=== PATIENT | female | born 1965 | race African-American/Black ===

== ENCOUNTER 2018-06-05 20:09 | Emergency (ER) | payer OTHER ==
[~2018-06-05] VITALS: Ht 172.7 cm; Wt 102.1 kg
[2018-06-05] MEDS ORDERED: MOBIC15 MG PO (20:25)
[2018-06-05 20:55] VITALS: BP 164/88
== END 2018-06-05 20:55 | disposition home or self-care (01) ==
LOC: ER 20:09
DX: M25.511 Pain in right shoulder (principal); Z90.710 Acquired absence of both cervix and uterus

== ENCOUNTER 2020-04-11 14:23 | Inpatient (IN) | payer OTHER ==
[~2020-04-11] VITALS: Ht 152.4 cm; Wt 141.6 kg
--- NOTE | ~2020-04-11 | O ---
[facility] [place] [address] OPERATIVE REPORT Name: LISA ANTONIO Room #: 454-P ADM IN M.R.#: [id number] Admission: 04/11/20 Attend Phys: Agus Muir MD Discharge: Date of : 63 Report #: [id number] THIS REPORT FOR: cc: JANICE - No family physician/PCP JANICE - No family physician/PCP Roge Reece MD ~ CC: [facility] physician/PCP Agus Muir DATE OF SERVICE: 04/12/2020 PREOPERATIVE DIAGNOSIS: Left groin abscess POSTOPERATIVE DIAGNOSIS: Left groin abscess OPERATION: Incision and drainage of left groin abscess SURGEON: Roge Reece MD ANESTHESIA: General ESTIMATED BLOOD LOSS: Minimal SPECIMEN: Fluid for culture and sensitivity DESCRIPTION OF PROCEDURE: After informed consent was obtained, the patient was brought to the operating room and placed supine. SCDs were placed and working, preoperative antibiotics were administered, general anesthesia was induced. The patient was then placed with the left leg frog legged out. The left groin was prepped and draped in the usual sterile fashion. A 3 cm incision was made over the area of fluctuance. Abscess fluid was drained, it was cultured. I then extended the incision posteriorly approximately 5 cm to fully drain the abscess. The area was then copiously irrigated with normal saline. It was packed with sterile gauze. Sterile dressings were applied. COMPLICATIONS: None. DISPOSITION: The patient was taken to recovery in satisfactory condition. By: [id number] Roge Reece MD /kasia
--- NOTE | ~2020-04-11 | O ---
[facility] [place] [address] OPERATIVE REPORT Name: LISA ANTONIO Room #: 454-P ADM IN M.R.#: [id number] Admission: 04/11/20 Attend Phys: Agus Muir MD Discharge: Date of : 63 Report #: [id number] THIS REPORT FOR: cc: JANICE - No family physician/PCP JANICE - [place] family physician/PCP Roge Reece MD ~ CC: [facility] physician/PCP Agus Muir DATE OF SERVICE: 04/15/2020 PREOPERATIVE DIAGNOSIS: Left groin abscess. POSTOPERATIVE DIAGNOSIS: Left groin abscess. OPERATION: Incision and debridement of left groin abscess. SURGEON: Roge Reece MD ANESTHESIA: General. ESTIMATED BLOOD LOSS: Minimal. SPECIMEN: None. DESCRIPTION OF PROCEDURE: After informed consent was obtained, the patient was brought to the operating room and placed supine. SCDs were placed and working, preoperative antibiotics were administered, general anesthesia was induced. The patient was placed in the lithotomy position. The area was then prepped and draped in the usual sterile fashion. This was excisional debridement. Depth was down through the muscle. 100% of the wound was debrided. Post-debridement wound area was approximately 20 x 6 x 3 cm. I used cautery to debride away necrotic tissue posteriorly. I then irrigated the area copiously and packed it with Dakin's soaked gauze. Two Kerlix rolls were used to pack the entirety of the wound. Sterile dressings were then applied. COMPLICATIONS: None. DISPOSITION: The patient was taken to recovery in satisfactory condition. By: [id number] [id number] Roge Reece MD /nt
--- NOTE | ~2020-04-11 | HC ---
[facility] [place] [address] CONSULTATION Name: LISA ANTONIO Room #: 454-P ADM IN M.R.#: [id number] Admission: 04/11/20 Attend Phys: Agus Muir MD Discharge: Date of : 63 Report #: [id number] THIS REPORT FOR: cc: JANICE - No family physician/PCP FAM - No family physician/PCP Cierra Davis MD ~ REASON FOR CONSULTATION: Elevated creatinine. REASON FOR PRESENTATION: Groin pain and swelling. HISTORY OF PRESENT ILLNESS: This is a 55-year-old with past medical history of gallbladder stones, hysterectomy. She presented to the Emergency Room with left groin pain and swelling associated with purulent discharge. She was found to have significant leukocytosis with an elevated creatinine. Creatinine on arrival was 2.6 and had risen to 3.9 mandating Nephrology consultation. White blood cell count was 28,000. Her abscess was associated with fever and chills. She also reported to some nausea and vomiting. The patient was admitted for further evaluation of her abscess. ID consult was obtained. She had significant abscess that was drained with and wound packed. Antibiotics were initiated by the Infectious Disease. PAST MEDICAL HISTORY: 1. Hysterectomy. 2. Gallbladder stones. 3. Recent incision and drainage of the left groin. SOCIAL HISTORY: No drug or alcohol abuse. She lives at home with family. FAMILY HISTORY: Hypertension. ALLERGIES: None. MEDICATIONS: None as an outpatient. REVIEW OF SYSTEMS: GENERAL: Significant for fever and chills. CARDIOVASCULAR: Significant for shortness of breath. PULMONARY: No cough or hemoptysis. GASTROINTESTINAL: Significant for nausea and vomiting. GENITOURINARY: No frequency, no urgency. MUSCULOSKELETAL: As per the history of present illness. PHYSICAL EXAMINATION: GENERAL: She is alert, oriented. VITAL SIGNS: Temperature 36.9, blood pressure is 146/68, pulse rate is 102, [facility] [address] [place] [address] CONSULTATION Name: LISA ANTONIO Room #: 454-P [facility] IN [facility]#: [id number] Admission: 04/11/20 Attend Phys: Agus Muir MD Discharge: Date of : 63 Report #: [id number] respiratory rate is 18. HEAD AND NECK: No jugular venous distention. CHEST: No crackles. CARDIOVASCULAR: No rub. ABDOMEN: Soft. EXTREMITIES: Lower extremities, recent surgical scar. LABORATORY VALUES: White blood cell count 26.4, hemoglobin 9.3. Sodium is 135, potassium is 4, carbon dioxide is 20, BUN is 64, creatinine is 3.9. CT abdomen, lower extremity CT revealed a pocket of gas in the left groin with inflammatory changes within the medial upper left thigh. IMPRESSION AND PLAN: 1. Acute kidney injury. 2. Left thigh abscess. 3. Sepsis secondary to left lower extremity abscess. 4. Her acute kidney injury is well explained by her current septic condition. Appropriate laboratory investigation will be sent. 5. Continue current approach for her abscess including aggressive wound care, antibiotics. 6. Check a CPK. 7. Continue to monitor daily electrolytes, urine output, and renal function. 8. Adjust all medications to her current GFR, specifically if we were able to use nephrotoxic medications. 9. Continue IV fluid. 10. We will continue to follow during her hospital stay. By: [id number] Cierra Davis MD /nt
[~2020-04-11 14:23] MED LIST: MOBIC15 MG PO
[2020-04-11 14:26] VITALS: BP 147/74
[2020-04-11] MEDS ORDERED: NOHOMEMEDICATIONS (14:57)
[2020-04-11 15:29] LABS: HEMATOCRIT 33.8 % (37.0-47.0); HEMOGLOBIN 11.1 gm/dL (12.0-15.0); MCH 28.9 pg (26.0-34.0); MCV 87.6 fL (80.0-100.0); RBC 3.86 mil/uL (4.20-5.00); RDW 15.4 % (10.5-14.5)
[2020-04-11 15:39] LABS: CALCIUM 9.7 mg/dL (8.5-10.1); CREATININE 2.6 mg/dL (0.6-1.0)
[2020-04-11 15:42] LABS: APTT 33.1 Seconds (24.5-32.8); INR 1.1; PROTIME 11.6 Seconds (9.3-11.4)
[2020-04-11 20:30] VITALS: BP 96/53
--- NOTE | 2020-04-11 20:38 | NUR ---
ATTEMPTED TO CALL REPORT [id number], RN NEEDS TO CALL BACK R/T PATIENT CARE.
--- NOTE | 2020-04-11 21:04 | NUR ---
2ND ATTEMPT TO CALL REPORT, RN UNAVAILABLE. WILL CALL BACK PER 4S
[2020-04-11 21:37] VITALS: BP 105/59
--- NOTE | 2020-04-11 23:46 | NUR ---
2130 ASSUMED CARE OF PT AFTER TRANSPORT FROM ER, 0 BASELINE ASSESSMENT COMPLETED. 2300 PICTURES OF WOUNDS TAKEN AND PLACED IN CHART
[2020-04-12] VITALS (9 sets, daily range): BP systolic 105–126; BP diastolic 56–73
[2020-04-12 03:06] LABS: HEMATOCRIT 38.6 % (37.0-47.0); HEMOGLOBIN 11.9 gm/dL (12.0-15.0); MCH 28.5 pg (26.0-34.0); RBC 4.19 mil/uL (4.20-5.00); RDW 15.9 % (10.5-14.5); WBC 18.2 thou/uL (4.0-11.0)
[2020-04-12 06:42] LABS: CALCIUM 8.7 mg/dL (8.5-10.1); CREATININE 2.9 mg/dL (0.6-1.0); MAGNESIUM 1.8 mg/dL (1.8-2.4); POTASSIUM 3.8 mmol/L (3.5-5.1)
--- NOTE | 2020-04-12 08:37 | NUR ---
SPOKE WITH DR OLIVEIRA WHO WILL COME TO UNIT TO ASSESS PATIENT.
--- NOTE | 2020-04-12 16:46 | NUR ---
PATIENT RETURNED FROM POST OP REPORT WAS GIVEN TO THIS NURSE. RETURNED AT 1315 V.S. 97.8 18 104 106/63/O2 SAT 96% RA. PT ALERT XS 4. CALLED FOR PRN PAIN MED PT IS REGULAR DIET. WATER GIVEN PER REQUEST. PT HAD LEFT GROIN I&D. DRESSING GUAZE INTACT. IV FLUIDS INFUSING ORDERED.
--- NOTE | 2020-04-12 18:35 | NUR ---
CALLED DR OLIVEIRA ABOUT MED SURGE TELE ORDER THAT WAS PUT IN AFTER I&D HE SAID NO NEED FOR TELE DC ORDER
[2020-04-13 05:36] LABS: GLYCOHEMOGLOBIN (HGB A1C) 5.7 % (4.8-5.6)
[2020-04-13 07:00] VITALS: BP 104/57
[2020-04-13 09:46] LABS: HEMATOCRIT 28.4 % (37.0-47.0); MCH 28.5 pg (26.0-34.0); MCHC 32.3 g/dL (28.0-37.0); MCV 88.3 fL (80.0-100.0); RBC 3.22 mil/uL (4.20-5.00); RDW 15.9 % (10.5-14.5)
[2020-04-13 09:47] LABS: HEMOGLOBIN 9.2 gm/dL (12.0-15.0)
[2020-04-13 09:53] LABS: CALCIUM 8.6 mg/dL (8.5-10.1); CREATININE 3.5 mg/dL (0.6-1.0); MAGNESIUM 1.9 mg/dL (1.8-2.4); POTASSIUM 3.7 mmol/L (3.5-5.1)
--- NOTE | 2020-04-13 14:52 | NUR ---
ASSUMED PT CARE THIS AM. PT VSS, A&OX4. PT COMPLAINING OF PAIN IN GROIN FROM CYST, RESPONDS WELL TO MEDS GIVEN PER EMAR. DRESSING REINFORCED THIS MORNING. CAME AND TOOK OUT AND REPLACED PACKING IN DRESSING TODAY. TAKES MEDS WHOLE WITHOUT COMPLAINT. BOTH IV'S ARE PATENT, FLUIDS INFUSING. HYDRATION ENCOURAGED. PT AMBULATORY TO THE BATHROOM WITH ASSISTANCE.
[2020-04-13 15:46] VITALS: BP 129/67
[2020-04-13 19:04] VITALS: BP 135/71
[2020-04-13 20:42] VITALS: BP 135/71
--- NOTE | 2020-04-14 03:33 | NUR ---
PT AOX4. PT REPORTS PAIN IN LEFT GROIN/THIGH AREA. PT RECEIVING PRN PO NORCO Q4HR AND PRN IV DILAUDID Q4HR. PT DENIES SOB WHILE ON ROOM AIR. PT TOLERATING PO INTAKE OF FLUIDS AND REGULAR DIET WITHOUT ISSUE. PT WITHOUT NAUSEA AND VOMITING. PT AMBULATING TO BATHROOM WITH STANDBY ASSIST. PT DRESSING TO GROIN/THIGH REINFORCED, ODOROUS PURULENT DRAINAGE NOTED. PT RESTING IN BED THROUGHOUT SHIFT, FREQUENT REPOSITIONING ENCOURAGED, PT NOTED TO SHIFT INDEPENDENTLY WHILE IN BED. PT ENCOURAGED TO NOTIFY STAFF FOR ALL NEEDS, CALL LIGHT WITHIN REACH, BED ALARM ON, BED IN LOWEST POSITION, FREQUENT MONITORING WILL CONTINUE.
[2020-04-14 04:27] VITALS: BP 119/63
[2020-04-14 05:21] LABS: HEMATOCRIT 28.5 % (37.0-47.0); HEMOGLOBIN 9.3 gm/dL (12.0-15.0); MCHC 32.6 g/dL (28.0-37.0); RBC 3.2 mil/uL (4.20-5.00); RDW 15.9 % (10.5-14.5); WBC 26.4 thou/uL (4.0-11.0)
[2020-04-14 05:32] LABS: CALCIUM 8.7 mg/dL (8.5-10.1); CREATININE 3.9 mg/dL (0.6-1.0); MAGNESIUM 2.2 mg/dL (1.8-2.4)
[2020-04-14 07:32] VITALS: BP 137/61
--- NOTE | 2020-04-14 12:01 | NUR ---
PT ADMITTED RELATED TO SEPSIS, SOFT TISSUE INFECTION. CM REVIEWED CHART AND SPOKE WITH CARE TEAM. CM CALLED AND SPOKE WITH PT OVER THE PHONE THIS DAY. PT APPEARED TO BE A&O X4. CM ROLE INTRODUCED. PT INDICATED SHE LIVES IN A HOUSE WITH HER BOYFRIEND AND HER SON. 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 PT INDICATED SHE IS PATIENT PAY WITH NO INSURANCE. PT INDICATED SHE HAD SEEN SOMEONE FOR PRIMARY CARE AT [facility] YEARS AGO BUT CAN'T RECALL THEIR NAME. PT INDICATED THAT SHE WOULD BE ABLE TO PAY TO FILL ANY PERSCRIPTIONS THAT SHE MAY NEED UPON DISHCARGE. PT INDICATED THAT HER SISTER WILL LIKELY BE ABLE TO ASSIST HER IN PACKING HER WOUND UPON DISHCARGE WELL. CM TO FOLLOW INDICATED WITH DC PLANNING.
--- NOTE | 2020-04-14 12:21 | NUR ---
PATIENT CARE ASSUME AT 0700 - TRANSFERRED TO MY CARE FROM [address] [place] [address]. PATIENT HAS ULCER THAT NEEDED TO BE INCISED AND DRAINED. PATIENT DRESSING CHANGED AND PACKING REPLACED. DRAINAGE EVIDENT. LEFT INNER THIGH SLIGHTLY SWOLLEN, ERYTHEMA EVIDENT WITH SLIGHT MALODOUOUS ODOR NOTED DURING DRESSING CHANGE. PATIENT GRIMACED SLIGHTLY DURING PACKING BUT STATED NO INTENSE DISCOMFORT. PATIENT AMBULATORY WITH STAND BY ASSIST - IV IN RIGHT AC INTACT AND PATENT WHEN ASSESSED. PATIENT ALERT AND ORIENTED X 4. PLEASANT AND AGREEABLE - MAKES NEEDS KNOWN READILY. PATIENT STATES LAST BM 04/12/2020. VITALS STABLE IN AM.
[2020-04-14 15:48] VITALS: BP 146/88
[2020-04-14 19:43] VITALS: BP 147/68
[2020-04-15] VITALS (8 sets, daily range): BP systolic 125–147; BP diastolic 64–79
--- NOTE | 2020-04-15 07:32 | NUR ---
PROGRESS PT UP AD ED RATING PAIN A 7 TO 10 1 DOSE OF HYDROMORPHONE AND 1 DOSE OF HYDROCODONE GIVEN WITH EFFECT. IV ANTIBIOTICS ADMINISTERED ORDERED IVF'S AT 150CC/HR INFUSED PT UP VOIDING QS UNMEASURED BUT PT STATES IT IS A LARGE AMOUNT. DRESSING INTACT SOME GAUZE FELL OUT BUT IT LOOKS LIKE PACKING IS STILL IN PLACE. NPO AFTER MIDNIGHT FOR POSSIBLE DEBRIDEMENT.
[2020-04-15 09:13] LABS: ALBUMIN 1.8 g/dL (3.4-5.0); CALCIUM 8.7 mg/dL (8.5-10.1); CREATININE 3.4 mg/dL (0.6-1.0); PHOSPHORUS 3.7 mg/dL (2.5-4.9); POTASSIUM 4.2 mmol/L (3.5-5.1)
[2020-04-15 09:17] LABS: URINE BILIRUBIN NEGATIVE (Negative); URINE BLOOD 3+ (Negative); URINE CLARITY CLOUDY; URINE COLOR YELLOW; URINE GLUCOSE-RANDOM* NEGATIVE (Negative); URINE KETONES NEGATIVE (Negative); URINE LEUKOCYTES 2+ (Negative); URINE NITRITE NEGATIVE (Negative); URINE PROTEIN (DIPSTICK) 1+ (Negative)
[2020-04-15 09:43] LABS: URINE CREATININE-RANDOM* 80.9 mg/dL; URINE PROTEIN-RANDOM* 135.4 mg/dL (<11.9)
[2020-04-15 09:48] LABS: CASTS None Seen /LPF (None Seen); CRYSTALS None Seen /LPF (None Seen); SQUAMOUS 0-3 Few /LPF (0-3)
[2020-04-15 09:51] LABS: BACTERIA 1-9 Few /HPF (None Seen); URINE RBC 0-2 Rare /HPF (0-2); URINE WBC 6-15 Few /HPF (0-5)
--- NOTE | 2020-04-15 11:08 | NUR ---
PATIENT WITH LEAKING IV THIS AM. ATTEMPTED X2 TO PLACE NEW IV WITH NO SUCCESS. COMMUNITY ORGANIZATION DIRECTOR PAGED. PATIENT TAKEN DOWN TO SURGERY AT 1030. INFORMED TRAVEL PT OF NO IV ACCESS. WILL ATTEMPT DOWN IN PRE-OP OR HAVE COMMUNITY ORGANIZATION DIRECTOR PAGED AGAIN. SENT WITH 0900 ZOSYN TO BE HUNG. PATIENT IS HAVING SECOND DEBRIDEMENT THIS AM.
--- NOTE | 2020-04-15 11:11 | NUR ---
Met with patient who resides in independent home with spouse and grandchild. She has flight of steps to garage. 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 She drives independently. Patient admits with vertigo. Physical therapy reports she would benefit from outpatient vestibular therapy. Updated phys for script at dc. PCP Dr Ludwig. [email or web address] following for dc needs.
--- NOTE | 2020-04-15 12:02 | NUR ---
I have reviewed the student documentation.
--- NOTE | 2020-04-15 14:28 | NUR ---
PT HAD REPEAT I&D THIS DAY. CARE TEAM INDICATED THAT NEPHROLOGY WAS CONSULTED. PT CONTINUES ON IV ZOSYN. CM TO FOLLOW INDICATED WITH DC PLANNING.
--- NOTE | 2020-04-16 06:49 | NUR ---
Assumed pt care at 1900. A/OX4,VSS. Up w/SBA to the bathroom. C/o pain to left inner thigh/groin,medicated with [place] with relief reported. Drsg to Left groin reinforced X2. IVF infusing via LAC w/o problems noted. Pt resting w/o distress noted at this time,will continue to monitor pt.
[2020-04-16 07:32] VITALS: BP 122/72
[2020-04-16 08:00] LABS: ALBUMIN 1.7 g/dL (3.4-5.0); CALCIUM 8.5 mg/dL (8.5-10.1); CREATININE 3.3 mg/dL (0.6-1.0); PHOSPHORUS 4.1 mg/dL (2.5-4.9); POTASSIUM 4.1 mmol/L (3.5-5.1)
--- NOTE | 2020-04-16 08:53 | NUR ---
Assess due to pt with BMI 61, extreme class III obesity and admit with left groin soft tissue infection, sepsis. Also with NIEVES, renal following, pt making urine. Eating 75-100% of meals. A1C wnl. Presents at low nutrition risk.
--- NOTE | 2020-04-16 14:29 | NUR ---
WOUND CONSULT; RECORDS ASSISTANT ASKED ME TO ASSIST WITH THE PICTURE AND DRESSING CHANGE. THE PATIENT SAYS THE WOUND IS TENDER. WHEN CLEANING THE WOUND AND PACKING THE WOUND WAS VERY TENDER. THE WOUND WAS PICTURED AND MEASURED. THE MEASURMENT WAS APPROX 20 X 3 X 4.0. THE PATIENT AMBULATED FROM THE CHAIR TO THE BED WITH MINIMAL ASSISTANCE. THE RN ASSESSED THE PATIENTS PAIN PRE AND POST PROCEEDURE AND WAS GOING TO GET PAIN MEDS FOR HER. RN PRESENT DURING THE DRESSING CHANGE.
--- NOTE | 2020-04-16 15:29 | NUR ---
PT CONTINUES ON IV ZOSYN. CARE TEAM INDICATED THAT PT IS PROGRESSING CLOWLY TOWARD GOAL OF DISCHARGING HOME. CM TO FOLLOW INDICATED WITH DC PLANNING.
[2020-04-16 15:45] VITALS: BP 115/61
[2020-04-16 19:24] VITALS: BP 118/60
--- NOTE | 2020-04-16 19:46 | NUR ---
ASSUMED CARE OF PATIENT AT SHIFT CHANGE. ASSESSMENT CHARTED. MEDICATIONS ADMINISTERED PER JUL. VSS. PATIENT IS A&OX4, DENIES PAIN UNLESS HAVING WOUND CARE DONE. I&D POST OP DAY 1; WOUND NURSE SAW PATIENT AND PERFORMED WOUND CARE. PICTURE WAS TAKEN AND POSTED ON CHART. PATIENT IS UP SBA TO BATHROOM; FLUIDS AND ABX INFUSING ON L FA WITH NO ISSUES. CM TO CHANGE IV ABX TO PO MEDS TO PREPARE FOR DISCHARGE. VOICED N0 NEEDS. ENDORSED TO NOC RN.
--- NOTE | 2020-04-16 20:00 | NUR ---
I AGREE WITH NURSING ASSESSMENT AND NURSING NOTE DONE BY ARTURO/MOTORBOAT MECHANIC INBOARD.
--- NOTE | 2020-04-17 05:14 | NUR ---
ASSUMED CARE AT 1900. PT IS A/O X4 AND IS UP SBA TO THE BR. PT DENIES ANY PAIN OR DISCOMFORT. VSS. DRSG TO LEFT THIGH/GROIN AREA IS C/D/I. REPLACED ONCE IT CAME OFF WHILE TRANSFERING TO THE BR WITH ASSISTANCE. AT THIS TIME PT IS LYING IN HER BED AND APPEARS TO BE SLEEPING. WILL CONTINUE TO MONITOR.
[2020-04-17 05:59] LABS: HEMATOCRIT 27.5 % (37.0-47.0); HEMOGLOBIN 8.9 gm/dL (12.0-15.0); MCH 28.8 pg (26.0-34.0); MCHC 32.4 g/dL (28.0-37.0); MCV 88.9 fL (80.0-100.0); RBC 3.09 mil/uL (4.20-5.00); RDW 15.7 % (10.5-14.5); WBC 20.9 thou/uL (4.0-11.0)
[2020-04-17 06:26] LABS: ALBUMIN 1.6 g/dL (3.4-5.0); CALCIUM 8.4 mg/dL (8.5-10.1); CREATININE 2.8 mg/dL (0.6-1.0); PHOSPHORUS 3.8 mg/dL (2.5-4.9); POTASSIUM 4.1 mmol/L (3.5-5.1)
[2020-04-17 07:27] VITALS: BP 132/70
--- NOTE | 2020-04-17 13:39 | NUR ---
CARE TEAM INDICATED THAT PT MAY BE MEDICALLY STABLE TO DC HOME TONORROW. PT HAD BEEN SWITCHED TO IV UNASYN. HOPE THAT PT MAY BE ABLE TRANSITION TO ORAL ABX PT DOESN'T HAVE ANY INSRUANCE COVERAGE. CM TO FOLLOW INDICATED WITH DC PLANNING.
[2020-04-17 16:30] VITALS: BP 150/81
[2020-04-17 19:46] VITALS: BP 147/73
--- NOTE | 2020-04-17 20:18 | NUR ---
PT A&OX4, VSS, PAIN LEFT GROIN. DRESSING CHANGE COMPLETED. NO SIGNS OF DISTRESS. WILL CONTINUE TO MONITOR.
[2020-04-18 04:23] LABS: HEMATOCRIT 25.4 % (37.0-47.0); HEMOGLOBIN 8.2 gm/dL (12.0-15.0); MCH 28.5 pg (26.0-34.0); MCHC 32.1 g/dL (28.0-37.0); MCV 88.8 fL (80.0-100.0); RBC 2.86 mil/uL (4.20-5.00); RDW 16.1 % (10.5-14.5)
[2020-04-18 04:37] LABS: ALBUMIN 1.6 g/dL (3.4-5.0); CALCIUM 8.2 mg/dL (8.5-10.1); CREATININE 2.2 mg/dL (0.6-1.0); PHOSPHORUS 3.5 mg/dL (2.5-4.9); POTASSIUM 3.8 mmol/L (3.5-5.1)
[2020-04-18 07:35] VITALS: BP 149/81
--- NOTE | 2020-04-18 07:41 | NUR ---
DRESSING DONE PRN PER MD ORDER. IV REPLACED TO RFA. STARTED HAVING DIARRHEA THIS AM. ENDORSED TO AM RN FOR POSS COLLECTION
--- NOTE | 2020-04-18 11:53 | NUR ---
CARE TEAM INDICATED THAT PT IS MEDICALLY STABLE TO DISCHARGE HOME THIS DAY. PT IS TO BE SWITCHED TO ORAL AUGMENTIN. CM SPOKE WITH PT THIS MORNING AND SHE IS AWARE AND AGREEABLE WITH DC HOME THIS DAY. PT INDICATED SHE WOULD NEED ASSISTANCE FILLING HER ABX PRIOR TO DC. PT CONFIRMED THAT HE SISTER WILL BE ABLE TO ASSIST HE WITH HER WOUND CARE UPON DC. PT WILL NEED WC SUPPLIES UPON DC CM NOTIFIED NURSE. PT GIVEN [facility] PACKET INFO. CM TO VOUCHER ABX. CM TO FOLLOW INDICATED WITH DC PLANNING.
[2020-04-18] MEDS ORDERED: AUGMENTIN 875-1 EACH PO ×2 (14:08→15:29)
[2020-04-18 15:45] VITALS: BP 149/81
--- NOTE | 2020-04-18 19:47 | NUR ---
PT DISCHARGED HOME, WOUND CARE COMPLETED, PATIENT PICKED UP MEDS FROM OUTPATIENT PHARMACY. ALL BELONGINGS WITH PATIENT, IV REMOVED. NO SIGNS OF DISTRESS AT TIME OF LEAVE.
== END 2020-04-18 17:40 | disposition home or self-care (01) | DRG 853 ==
LOC: ER 14:23 → EROBS 18:49 → 4S 21:21 → 4W 04-14 06:49
PROVIDERS: Emergency Medicine; Hospitalist; Internal Medicine; Nurse Practitioner Family; Surgery; ADMIT Hospitalist; ATTEND Hospitalist
PROC: 0Y960ZZ Drainage of Left Inguinal Region, Open Approach (ICD-10-PCS; principal; 2020-04-12)
PROC: 0KBR0ZZ Excision of Left Upper Leg Muscle, Open Approach (ICD-10-PCS; 2020-04-15)
DX: A41.9 Sepsis, unspecified organism (principal); E43 Unspecified severe protein-calorie malnutrition; N17.9 Acute kidney failure, unspecified; L02.416 Cutaneous abscess of left lower limb; Z68.44 Body mass index [BMI] 60.0-69.9, adult; N18.9 Chronic kidney disease, unspecified; R73.9 Hyperglycemia, unspecified; I95.9 Hypotension, unspecified; Z20.828 Contact with and (suspected) exposure to other viral communicable diseases; Z90.710 Acquired absence of both cervix and uterus; Z23 Encounter for immunization; Z79.899 Other long term (current) drug therapy
CPT/HCPCS: 10040; 10102; 50010; 50101; 50386; 50403; 62110; 62900; 70005